=== PATIENT | female | born 1930 | race Caucasian/White ===

== ENCOUNTER 2016-07-18 06:02 | Inpatient (IN) | payer MEDICARE, OTHER ==
[2016-07-13 11:36] LABS: WBC (NOT ORDERED) (RFLEX) 0 (0-5)
[2016-07-13 11:58] LABS: BASOPHILS 0.6 %; BASOPHILS ABSOLUTE 0.04 10/3/uL (0.0-0.16); EOSINOPHILS 1.2 %; EOSINOPHILS ABSOLUTE 0.09 10/3/uL (0.0-0.53); HEMATOCRIT 42.5 % (36.0-48.0); HEMOGLOBIN 14.4 g/dL (12.0-16.0); IMMATURE GRANULOCYTES 0.4 %; IMMATURE GRANULOCYTES ABSOLUTE 0.03 10/3/uL (0.0-0.11); LYMPHOCYTES 22.5 %; LYMPHOCYTES ABSOLUTE 1.63 10/3/uL (0.67-4.30); MEAN CORPUS HGB CONC 33.9 g/dL (32.0-36.0); MEAN CORPUSCULAR HEMOGLOB 29.8 pg (26.0-34.0); MEAN PLATELET VOLUME 10.3 fL (9.2-13.0); MONOCYTES 11.2 %; MONOCYTES ABSOLUTE 0.81 10/3/uL (0.21-1.20); NEUTROPHILS 64.1 %; NEUTROPHILS ABSOLUTE 4.64 10/3/uL (2.02-8.40); PLATELET COUNT 284 10/3/uL (150-400); RBC DISTRIBUTION WIDTH 13.3 % (12.0-16.0); RED CELL COUNT 4.83 10/6/uL (4.0-5.6); WHITE BLOOD CELLS 7.2 10/3/uL (4.5-10.5)
[2016-07-13 12:02] LABS: MANUAL DIFF NO %
[2016-07-13 12:05] LABS: ASCORBIC ACID (UR NOT ORDER) NEG (NEG); BILIRUBIN, URINE NEGATIVE (NEG); KETONE, URINE NEGATIVE (NEG); LEUKOCYTE ESTERASE(NOT OR NEG (NEG)
[2016-07-13 12:08] LABS: PARTIAL THROMBO TIME 26.3 SEC (22.5-37.2); PROTIME (NOT ORD) 13.1 SEC (12.0-14.5)
[2016-07-13 12:11] LABS: ALBUMIN 3.9 G/DL (3.5-5.0); ALKALINE PHOSPHATASE 54 U/L (45-117); BUN (BLOOD UREA NITROGEN) 22 MG/DL (6-23); CALCIUM, SERUM 9.7 MG/DL (8.5-10.4); CHLORIDE, SERUM 104 MMOL/L (96-112); CO2 (CARBON DIOXIDE) 29 MMOL/L (24-34); CREATININE 0.95 MG/DL (0.55-1.02); GFR AFRICAN AMERICAN 64 ML/MIN (>=60); GFR NON AFRICAN AMERICAN 55 ML/MIN (>=60); GLUCOSE, SERUM 112 MG/DL (60-99); POTASSIUM, SERUM 4.2 MMOL/L (3.5-5.3); SGOT(AST) 14 U/L (5-40); SGPT(ALT) 18 U/L (5-65); SODIUM, SERUM 141 MMOL/L (135-148); TOTAL BILIRUBIN 0.4 MG/DL (0-1.2); TOTAL PROTEIN 7.6 G/DL (6.0-8.5)
[2016-07-13 12:12] LABS: A/G RATIO 1.1 (0.7-1.9); CEA 0.9 NG/ML; GLOBULIN 3.7 G/DL (2.5-4.1)
--- NOTE | ~2016-07-18 | OP ---
Record Of Operation [facility] [address] [place]. [address] NAME: BRONSON SPANN : 32 STATUS : ADM IN PAT#: [id number] AGE: 86 ADM/REG DATE : 07/18/16 MR#: [id number] REPORT SERV DATE: 07/19/16 DICTATED BY: COLEEN HAHN JR. DATE: 07/18/16 REPORT STATUS : Draft TRANSCRIBED BY: MODL DATE: 07/18/16 DATE OF PROCEDURE: 07/18/2016 SURGEON: Coleen Guardado MD S IRON WORKER: Dawood Cosby. PROCEDURE: Resection of retroperitoneal tumor (13 cm) with incontinuity, right colectomy, and right oophorectomy. PREOPERATIVE DIAGNOSIS: Retroperitoneal tumor. 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 ANESTHESIA: General. INDICATIONS: The patient had been found to have a pelvic retroperitoneal mass on imaging. This displaced the ureter. 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 There was no evidence of any metastatic disease. An exploration for resection was indicated. FINDINGS: On exploration of the abdomen, there was no evidence of any peritoneal tumor, ascites, or hepatic lesion. There was a large mass in the right side of the abdomen with visible vessels on it. It was adjacent to the right colonic mesentery. It did not involve the colon directly and also was attached to the right tube and ovary. It was involving the retroperitoneum, had displaced the ureter medially and also the iliac vessels inferiorly and medially and the kidney superiorly. A ureteral catheter had been placed by Dr. Hawthorne pre-exploration and this is dictated separately. It was elected to proceed with resection of the right colon and mesentery to facilitate the resection and this was accomplished. The tumor was adjacent, but not invasive of the iliac vessels and was able to be from them and also with the ureter. It was separate from the kidney. There was involving the psoas muscle in the retroperitoneum. In the area of the retroperitoneum, there was no boundary for achieving a measurable margin, however, fatty tissue from the retroperitoneum was excised after the main tumor mass and this appeared to be grossly normal. This was submitted for final deep margin. The outlines of the tumor bed were marked with small clips. DESCRIPTION OF PROCEDURE: With adequate general anesthesia, after the performance of the cystoscopy and catheter placement, the patient was placed supine. The abdomen was prepped and draped sterilely. A midline incision was made. The dissection was carried down sharply through the subcutaneous tissues. The fascia and peritoneum were opened. The peritoneal cavity was entered and the above-noted findings were divided. It was elected to proceed with the resection of right colon; therefore, the proximal transverse colon was divided with a ALYSA 75 as was the terminal ileum. Wide resection of mesentery was undertaken securing bleeders with the EnSeal device and also ligatures of silk. The perineum was divided Record Of Operation [facility] [address] [place]. [address] NAME: BRONSON SPANN : 32 STATUS : ADM IN [facility]#: [id number] AGE: 86 ADM/REG DATE : 07/18/16 MR#: [id number] REPORT SERV DATE: 07/19/16 DICTATED BY: COLEEN HAHN JR. DATE: 07/18/16 REPORT STATUS : Draft TRANSCRIBED BY: CLAUDE DATE: 07/18/16 laterally and also carried down retroperitoneum superiorly where Gerota's fascia and other soft tissues divided with the EnSeal. Then immediately subsequent to dissecting this, the ureter was encountered, and the tumor dissected off this and then also the iliac vessels, and with a fairly tedious time consuming and technically dissection, this was able to be dissected from these vessels down into the psoas muscle. With this accomplished, the mass was removed by dividing the fascial and muscular tissue sharply and excising the tumor and colon from the bed. Additionally, the tube and ovary were removed. The broad ligament was cut and clamped and divided as were some other additional peritoneal attachments. Bleeding was controlled with the EnSeal and also suture ligatures of silk. The specimen was then submitted to Pathology. Additional tissue was noted. Bleeding was secured with clips, suture ligatures of Vicryl, and ultimately with Evicel and Fibrillar. An ileocolostomy was created with ALYSA 75. The open end was closed with TA-60 and this was reinforced with suture of 3-0 silk. Initially, the mesenteric defect was closed with suture of 3-0 silk. Then, after thorough irrigation with sterile water, the wound was closed by approximating the fascia with running 0 PDS suture, subcutaneous Vicryl, and dermal Monocryl, and negative pressure Prevena VAC dressing was placed. The patient left the operating room in satisfactory condition. ESTIMATED BLOOD LOSS: 150 mL. DAGO/CLAUDE Coleen Hahn Jr., M.D. / [id number] CC: Coleen Hahn Jr., M.D.
--- NOTE | ~2016-07-18 | DS ---
Discharge Summary [facility] [address] [place]. [address] NAME: BRONSON SPANN : 32 STATUS : DIS IN PAT#: [id number] AGE: 86 ADM/REG DATE : 07/18/16 MR#: [id number] REPORT SERV DATE: 07/29/16 DICTATED BY: COLEEN HAHN JR. DATE: 07/29/16 REPORT STATUS : Draft TRANSCRIBED BY: CLAUDE DATE: 07/29/16 Data Collection from hospitalization DISCHARGE DIAGNOSES: 1. 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 2. Hypertension. 3. Diabetes mellitus. 4. History of breast cancer. 5. Hyperlipidemia. CONSULTATIONS: Malika Hawthorne M.D. PROCEDURES PERFORMED: 1. Cystoscopy, right retrograde pyelography, ureteral stent placement, Urban catheter placement, and examination under anesthesia on 07/18/2016. 2. Resection of retroperitoneal tumor (13 cm) with incontinuity, right colectomy and right oophorectomy on 07/18/2016. PATHOLOGY: ( ). MEDICATIONS: Xanax 0.25 mg twice a day as needed, aspirin 81 mg every day at bedtime, Hyzaar one tablet every day at bedtime, Percocet 5/325 one to two tablets every six hours as needed, Zocor 40 mg at bedtime, and Ambien 5 mg at bedtime. CONDITION AT DISCHARGE: Stable. DISPOSITION: The patient was discharged home on a soft diet with activities as instructed. She would follow up with me on 07/29/2016. HOSPITAL COURSE: This is an 86-year-old female who was found to have a pelvic retroperitoneal mass on imaging, this displaced the ureter. A core biopsy showed a spindle cell-type tumor. There was no evidence of any metastatic disease. Treatment options were discussed and it was elected to proceed with surgical intervention. She was admitted to the hospital at this time for further evaluation and treatment. Upon admission, she was taken to the operating room where she underwent the above-mentioned procedure. She does have some mild hydronephrosis and Dr. Malika Hawthorne was asked to perform cystoscopy, right retrograde pyelography, ureteral stent placement, Urban catheter placement, and examination under anesthesia. She tolerated these procedures well, and there were no complications. On postop day #1, her abdomen was soft. Her wound looked okay. We encouraged her to increase her activity. Clear liquids were started. Her urine was clear. She was afebrile. The stent and Urban catheter were going to be removed. The Urban would be reinserted as needed. On 07/20/2016, the catheter was removed. She was voiding without complaints. She was encouraged to increase her activity. IV fluids were decreased. Liquids were continued. She continued to progress. We advanced her diet. Discharge planning was performed. On 07/22/2016, she continued to progress satisfactorily. Her abdomen was soft. Discharge instructions were given. Due to her improved and stable Discharge Summary [address] [place]. [address] NAME: BRONSON SPANN : 32 STATUS : DIS IN PAT#: [id number] AGE: 86 ADM/REG DATE : 07/18/16 MR#: [id number] REPORT SERV DATE: 07/29/16 DICTATED BY: COLEEN HAHN JR. DATE: 07/29/16 REPORT STATUS : Draft TRANSCRIBED BY: CLAUDE DATE: 07/29/16 condition, she was discharged home with the above-stated instructions. Information collected by: Ava Wood I submit the above information as my discharge summary. MANSOOR/CLAUDE Coleen Hahn Jr., M.D. / [id number] CC: Ronda Arreola Jr., M.D. J. Patrick Dilworth, M.D.
--- NOTE | ~2016-07-18 | OP ---
Record Of Operation [facility] [address] [place]. [address] NAME: BRONSON MATOS : 32 STATUS : ADM IN PAT#: [id number] AGE: 86 ADM/REG DATE : 07/18/16 MR#: [id number] REPORT SERV DATE: 07/18/16 DICTATED BY: Malika CONNER DATE: 07/18/16 REPORT STATUS : Draft TRANSCRIBED BY: MODL DATE: 07/18/16 DATE OF PROCEDURE: 07/18/2016 PREOPERATIVE DIAGNOSIS: Right lower quadrant mass with mild hydronephrosis. POSTOPERATIVE DIAGNOSIS: Right lower quadrant mass with mild hydronephrosis. PROCEDURES: Cystoscopy, right retrograde pyelography, ureteral stent placement, Urban catheter placement, and examination under anesthesia. SURGEON: Malika Conner M.D. ANESTHESIA: General. COMPLICATIONS: None. DRAINS: 1. 5-Latvian right open-ended ureteral catheter. 2. 18-Latvian Urban catheter. BRIEF HISTORY: Ms. 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 She had some mild hydro and Dr. Hermosillo wanted a ureteral catheter placed prior to surgical resection. The risks of bleeding, infection, anesthesia, ureteral injury, need for an indwelling double-J stent, etc. were discussed. There were no unanswered questions. DESCRIPTION OF PROCEDURE: Under excellent general anesthesia, the patient was prepped and draped in a standard lithotomy position. Cystoscopy was performed with a 30-degree lens, revealed normal orifices bilaterally. There were no tumors, stones, or foreign bodies noted. No masses noted within the bladder. The urethra appeared normal. Manual exam revealed no periurethral masses. There is a known right lower quadrant mass palpable. A 5- Latvian open-ended ureteral catheter was used to perform a right retrograde pyelogram. It showed some mild dilation of the proximal ureter, but delicate calices. I inserted a wire and advanced the catheter into the renal pelvis on the right. I then removed the wire and placed an 18-Latvian Urban catheter. Using an adapter, the stent was drained into the catheter and then the stent was affixed to the catheter with interrupted 3-0 silk sutures as well as tape. There was no intraureteral injury suspect. We would remove the catheter in the early postoperative. DENIS/CLAUDE Malika Conner M.D. Record Of Operation [address] [address] NAME: BRONSON MATOS : 32 STATUS : ADM IN PAT#: [id number] AGE: 86 ADM/REG DATE : 07/18/16 MR#: [id number] REPORT SERV DATE: 07/18/16 DICTATED BY: Malika CONNER DATE: 07/18/16 REPORT STATUS : Draft TRANSCRIBED BY: CLAUDE DATE: 07/18/16 / [id number] CC: Farhat Hermosillo Jr., M.D.
[~2016-07-18 06:02] MED LIST: AMB5 PO; ASAB PO; CELEXA10 PO; HYZAAR 50/12.51 TAB PO; NASACORTAQ NAS; X25 PO; ZOCOR20 PO
[2016-07-18 12:28] LABS: BASOPHILS 0.1 %; BASOPHILS ABSOLUTE 0.01 10/3/uL (0.0-0.16); EOSINOPHILS 0 %; HEMATOCRIT 33.5 % (36.0-48.0); HEMOGLOBIN 11.4 g/dL (12.0-16.0); IMMATURE GRANULOCYTES 0.3 %; IMMATURE GRANULOCYTES ABSOLUTE 0.03 10/3/uL (0.0-0.11); LYMPHOCYTES 5.6 %; LYMPHOCYTES ABSOLUTE 0.59 10/3/uL (0.67-4.30); MANUAL DIFF NO %; MEAN CORPUSCULAR HEMOGLOB 29.7 pg (26.0-34.0); MEAN CORPUSCULAR VOLUME 87.2 fL (80-100); MEAN PLATELET VOLUME 9.9 fL (9.2-13.0); MONOCYTES 2.3 %; MONOCYTES ABSOLUTE 0.24 10/3/uL (0.21-1.20); NEUTROPHILS 91.7 %; NEUTROPHILS ABSOLUTE 9.76 10/3/uL (2.02-8.40); PLATELET COUNT 245 10/3/uL (150-400); RBC DISTRIBUTION WIDTH 13.3 % (12.0-16.0); RED CELL COUNT 3.84 10/6/uL (4.0-5.6); WHITE BLOOD CELLS 10.6 10/3/uL (4.5-10.5)
[2016-07-18 12:42] LABS: BUN (BLOOD UREA NITROGEN) 14 MG/DL (6-23); CALCIUM, SERUM 8.2 MG/DL (8.5-10.4); CHLORIDE, SERUM 108 MMOL/L (96-112); CO2 (CARBON DIOXIDE) 24 MMOL/L (24-34); CREATININE 0.84 MG/DL (0.55-1.02); GFR AFRICAN AMERICAN 74 ML/MIN (>=60); GFR NON AFRICAN AMERICAN 64 ML/MIN (>=60); GLUCOSE, SERUM 248 MG/DL (60-99); SODIUM, SERUM 141 MMOL/L (135-148)
[2016-07-19 05:32] LABS: BASOPHILS 0 %; EOSINOPHILS 0 %; HEMOGLOBIN 9.7 g/dL (12.0-16.0); IMMATURE GRANULOCYTES 0.4 %; IMMATURE GRANULOCYTES ABSOLUTE 0.05 10/3/uL (0.0-0.11); LYMPHOCYTES 6.5 %; LYMPHOCYTES ABSOLUTE 0.77 10/3/uL (0.67-4.30); MEAN CORPUS HGB CONC 33.2 g/dL (32.0-36.0); MEAN CORPUSCULAR VOLUME 87.4 fL (80-100); MEAN PLATELET VOLUME 10.1 fL (9.2-13.0); MONOCYTES 8.3 %; MONOCYTES ABSOLUTE 0.99 10/3/uL (0.21-1.20); NEUTROPHILS 84.8 %; NEUTROPHILS ABSOLUTE 10.11 10/3/uL (2.02-8.40); PLATELET COUNT 208 10/3/uL (150-400); RBC DISTRIBUTION WIDTH 13.1 % (12.0-16.0); RED CELL COUNT 3.34 10/6/uL (4.0-5.6); WHITE BLOOD CELLS 11.9 10/3/uL (4.5-10.5)
[2016-07-19 05:34] LABS: HEMATOCRIT 29.2 % (36.0-48.0); MANUAL DIFF NO %
[2016-07-19 05:45] LABS: BUN (BLOOD UREA NITROGEN) 14 MG/DL (6-23); CALCIUM, SERUM 8.5 MG/DL (8.5-10.4); CHLORIDE, SERUM 109 MMOL/L (96-112); CREATININE 0.74 MG/DL (0.55-1.02); GFR AFRICAN AMERICAN 86 ML/MIN (>=60); GFR NON AFRICAN AMERICAN 74 ML/MIN (>=60); SGOT(AST) 41 U/L (5-40); SGPT(ALT) 33 U/L (5-65); SODIUM, SERUM 141 MMOL/L (135-148); TOTAL BILIRUBIN 0.5 MG/DL (0-1.2)
[2016-07-19 05:46] LABS: A/G RATIO 1.3 (0.7-1.9); ALBUMIN 2.9 G/DL (3.5-5.0); ALKALINE PHOSPHATASE 34 U/L (45-117); CO2 (CARBON DIOXIDE) 29 MMOL/L (24-34); GLOBULIN 2.2 G/DL (2.5-4.1); GLUCOSE, SERUM 133 MG/DL (60-99); POTASSIUM, SERUM 4.5 MMOL/L (3.5-5.3); TOTAL PROTEIN 5.1 G/DL (6.0-8.5)
[2016-07-20 07:10] LABS: BASOPHILS 0.2 %; BASOPHILS ABSOLUTE 0.02 10/3/uL (0.0-0.16); EOSINOPHILS 1.1 %; EOSINOPHILS ABSOLUTE 0.14 10/3/uL (0.0-0.53); HEMOGLOBIN 11.4 g/dL (12.0-16.0); IMMATURE GRANULOCYTES 0.4 %; IMMATURE GRANULOCYTES ABSOLUTE 0.05 10/3/uL (0.0-0.11); LYMPHOCYTES 11.3 %; MEAN CORPUS HGB CONC 34.1 g/dL (32.0-36.0); MEAN CORPUSCULAR HEMOGLOB 29.9 pg (26.0-34.0); MEAN CORPUSCULAR VOLUME 87.7 fL (80-100); MEAN PLATELET VOLUME 9.9 fL (9.2-13.0); MONOCYTES 8.5 %; MONOCYTES ABSOLUTE 1.05 10/3/uL (0.21-1.20); NEUTROPHILS 78.5 %; NEUTROPHILS ABSOLUTE 9.73 10/3/uL (2.02-8.40); PLATELET COUNT 244 10/3/uL (150-400); RBC DISTRIBUTION WIDTH 13.8 % (12.0-16.0); RED CELL COUNT 3.81 10/6/uL (4.0-5.6); WHITE BLOOD CELLS 12.4 10/3/uL (4.5-10.5)
[2016-07-20 07:11] LABS: HEMATOCRIT 33.4 % (36.0-48.0); MANUAL DIFF NO %
[2016-07-20 07:25] LABS: A/G RATIO 1.3 (0.7-1.9); ALBUMIN 3.2 G/DL (3.5-5.0); CHLORIDE, SERUM 107 MMOL/L (96-112); CO2 (CARBON DIOXIDE) 26 MMOL/L (24-34); CREATININE 0.74 MG/DL (0.55-1.02); GFR AFRICAN AMERICAN 86 ML/MIN (>=60); GFR NON AFRICAN AMERICAN 74 ML/MIN (>=60); GLOBULIN 2.4 G/DL (2.5-4.1); GLUCOSE, SERUM 130 MG/DL (60-99); POTASSIUM, SERUM 4.2 MMOL/L (3.5-5.3); SGOT(AST) 41 U/L (5-40); SGPT(ALT) 25 U/L (5-65); SODIUM, SERUM 140 MMOL/L (135-148); TOTAL BILIRUBIN 0.5 MG/DL (0-1.2); TOTAL PROTEIN 5.6 G/DL (6.0-8.5)
[2016-07-20 07:26] LABS: ALKALINE PHOSPHATASE 43 U/L (45-117); BUN (BLOOD UREA NITROGEN) 7 MG/DL (6-23)
[2016-07-21 06:40] LABS: BASOPHILS 0.2 %; BASOPHILS ABSOLUTE 0.02 10/3/uL (0.0-0.16); EOSINOPHILS 6.2 %; EOSINOPHILS ABSOLUTE 0.51 10/3/uL (0.0-0.53); HEMATOCRIT 30.5 % (36.0-48.0); HEMOGLOBIN 10.3 g/dL (12.0-16.0); IMMATURE GRANULOCYTES 0.6 %; IMMATURE GRANULOCYTES ABSOLUTE 0.05 10/3/uL (0.0-0.11); LYMPHOCYTES 14.9 %; LYMPHOCYTES ABSOLUTE 1.22 10/3/uL (0.67-4.30); MEAN CORPUS HGB CONC 33.8 g/dL (32.0-36.0); MEAN CORPUSCULAR HEMOGLOB 29.6 pg (26.0-34.0); MEAN CORPUSCULAR VOLUME 87.6 fL (80-100); MEAN PLATELET VOLUME 9.7 fL (9.2-13.0); MONOCYTES 8.2 %; MONOCYTES ABSOLUTE 0.67 10/3/uL (0.21-1.20); NEUTROPHILS 69.9 %; NEUTROPHILS ABSOLUTE 5.74 10/3/uL (2.02-8.40); PLATELET COUNT 230 10/3/uL (150-400); RBC DISTRIBUTION WIDTH 13.7 % (12.0-16.0); RED CELL COUNT 3.48 10/6/uL (4.0-5.6); WHITE BLOOD CELLS 8.2 10/3/uL (4.5-10.5)
[2016-07-21 06:48] LABS: MANUAL DIFF NO %
[2016-07-21 06:58] LABS: BUN (BLOOD UREA NITROGEN) 6 MG/DL (6-23); CALCIUM, SERUM 8.5 MG/DL (8.5-10.4); CHLORIDE, SERUM 108 MMOL/L (96-112); CO2 (CARBON DIOXIDE) 27 MMOL/L (24-34); CREATININE 0.68 MG/DL (0.55-1.02); GFR AFRICAN AMERICAN 93 ML/MIN (>=60); GFR NON AFRICAN AMERICAN 80 ML/MIN (>=60); GLUCOSE, SERUM 131 MG/DL (60-99); SODIUM, SERUM 141 MMOL/L (135-148)
[2016-07-22 07:24] LABS: BASOPHILS 0.3 %; BASOPHILS ABSOLUTE 0.02 10/3/uL (0.0-0.16); EOSINOPHILS 6.8 %; HEMATOCRIT 27.7 % (36.0-48.0); HEMOGLOBIN 9.4 g/dL (12.0-16.0); IMMATURE GRANULOCYTES 1.2 %; IMMATURE GRANULOCYTES ABSOLUTE 0.09 10/3/uL (0.0-0.11); LYMPHOCYTES 17.8 %; MEAN CORPUS HGB CONC 33.9 g/dL (32.0-36.0); MEAN CORPUSCULAR HEMOGLOB 29.7 pg (26.0-34.0); MEAN CORPUSCULAR VOLUME 87.7 fL (80-100); MEAN PLATELET VOLUME 9.5 fL (9.2-13.0); MONOCYTES ABSOLUTE 0.66 10/3/uL (0.21-1.20); NEUTROPHILS 64.9 %; NEUTROPHILS ABSOLUTE 4.73 10/3/uL (2.02-8.40); PLATELET COUNT 244 10/3/uL (150-400); RBC DISTRIBUTION WIDTH 13.6 % (12.0-16.0); RED CELL COUNT 3.16 10/6/uL (4.0-5.6); WHITE BLOOD CELLS 7.3 10/3/uL (4.5-10.5)
[2016-07-22 07:26] LABS: MANUAL DIFF NO %
[2016-07-22 07:28] LABS: CALCIUM, SERUM 8.3 MG/DL (8.5-10.4); CHLORIDE, SERUM 108 MMOL/L (96-112); SODIUM, SERUM 142 MMOL/L (135-148)
[2016-07-22 07:32] LABS: BUN (BLOOD UREA NITROGEN) 9 MG/DL (6-23); CO2 (CARBON DIOXIDE) 29 MMOL/L (24-34); CREATININE 0.62 MG/DL (0.55-1.02); GFR AFRICAN AMERICAN 96 ML/MIN (>=60); GFR NON AFRICAN AMERICAN 83 ML/MIN (>=60); GLUCOSE, SERUM 106 MG/DL (60-99)
[2016-07-22] MEDS ORDERED: PCET PO (09:48)
== END 2016-07-22 13:37 | disposition home or self-care (01) | DRG 827 ==
LOC: SDC/OF 06:02 → PACU 11:47 → 5SO 14:36
PROVIDERS: Specialist
PROC: BT1D1ZZ Fluoroscopy of Right Kidney, Ureter and Bladder using Low Osmolar Contrast (ICD-10-PCS; 2016-07-18)
PROC: 0T768DZ Dilation of Right Ureter with Intraluminal Device, Via Natural or Artificial Opening Endoscopic (ICD-10-PCS; 2016-07-18)
PROC: 0DBK0ZZ Excision of Ascending Colon, Open Approach (ICD-10-PCS; principal; 2016-07-18 07:45)
PROC: 0UT00ZZ Resection of Right Ovary, Open Approach (ICD-10-PCS; 2016-07-18 07:45)
DX: C48.0 Malignant neoplasm of retroperitoneum (principal); N13.30 Unspecified hydronephrosis; E11.9 Type 2 diabetes mellitus without complications; I10 Essential (primary) hypertension; E78.5 Hyperlipidemia, unspecified; Z85.3 Personal history of malignant neoplasm of breast; Z79.899 Other long term (current) drug therapy; Z90.49 Acquired absence of other specified parts of digestive tract; Z98.890 Other specified postprocedural states; Z90.12 Acquired absence of left breast and nipple; Z96.653 Presence of artificial knee joint, bilateral
CPT/HCPCS: 36415; 71010; 71020; 74420; 80048; 80053; 81001; 82378; 82962; 83735; 85025; 85610; 85730; 86850; 86900; 86901; 86920; 88305; 88307; 88309; 88311; 93005; A9270-GY; C1751; C1758; C1769; J0690; J2250; J2270; J2370; J2405; J2710; J2795; J3010; P9045; Q9967